=== PATIENT | male | born 1970 | race Caucasian/White ===

== ENCOUNTER 2017-08-18 22:18 | Emergency (ER) | payer OTHER ==
[~2017-08-18] VITALS: Ht 170.2 cm; Wt 97.5 kg
[2017-08-18 22:22] VITALS: BP 130/82
[2017-08-18] MEDS ORDERED: POLYTRIM EYE DR10 ML OPH (23:01)
--- NOTE | 2017-08-18 23:01 | ED EYE COMPLAINT ---
History of Present Illness General Chief Complaint: Eye Problems Stated Complaint: EYE Source: patient, family Exam Limitations: no limitations Vital Signs & Intake/Output Vital Signs & Intake/Output Vital Signs Date Time Temp Pulse Resp B/P B/P Pulse O2 O2 Flow FiO2 Mean Ox Delivery Rate 08/18 2247 Room Air 08/18 2222 98.3 89 18 130/82 96 Room Air ED Intake and Output 08/19 0000 08/18 1200 Intake Total 0 Output Total Balance 0 Intake, Oral 0 Patient 97.522 kg Weight Weight Reported by Patient Measurement Method Allergies Coded Allergies: NO KNOWN ALLERGIES (11/18/13) Reconcile Medications Polytrim (Polytrim Eye Drops) 10,000 UNIT-1 MG/ML DROPS 1 GTT OPH Q6 abrasion Triage Note: PT FROM HOME C/O LEFT EYE INJURY 20 MINS PRIOR TO ARRIVAL. PT STATES 20 MINS PRIOR TO ARRIVAL PT WAS LAYING IN BED WATCHING TV WHEN PTS CAT SPRUNG ON PTS FACE WITH CLAWS OUT. PT STATES THAT THE CLAW SCRATCHED PTS LEFT EYE. PT IN TRIAGE WITH LEFT EYE CLOSED. PT DENIES BLURRY VISION, PT UTD WITH TETANUS AND PTS CAT UTD WITH SHOTS. PT ABLE TO OPEN EYE AND LOOK AROUND WITHOUT DIFFICULTY, PT STATES "IT JUST FEELS LIKE A GOLF BALL, NO PAIN" VSS. Triage Nurses Notes Reviewed? yes HPI: 46M no significant PMH got scratched in his left eye by his cat about an hour ago. Denies pain in the eye at rest or with eye movement. Vision is normal and intact. He reports that his eye feels "wrong", but not painful. He feels well otherwise. Past History Travel History Traveled to [place] past 21 day No Medical History Any Pertinent Medical History? see below for history Neurological: NONE EENT: NONE Cardiovascular: NONE Respiratory: NONE Gastrointestinal: NONE Hepatic: NONE Renal: NONE Musculoskeletal: NONE Psychiatric: NONE Endocrine: NONE Surgical History Surgical History: non-contributory Psychosocial History What is your primary language Korean Tobacco Use: Quit >30 days ago Family History Hx Contributory? No Review of Systems Review of Systems Constitutional: Reports: no symptoms. Eyes: Reports: no symptoms. Ear: Reports: no symptoms. Nose: Reports: no symptoms. Mouth: Reports: no symptoms. Throat: Reports: no symptoms. Respiratory: Reports: no symptoms. Cardiovascular: Reports: no symptoms. GI: Reports: no symptoms. Genitourinary: Reports: no symptoms. Musculoskeletal: Reports: no symptoms. Skin: Reports: no symptoms. Neurological/Psychological: Reports: no symptoms. Hematologic/Endocrine: Reports: no symptoms. Immunologic/Allergic: Reports: no symptoms. All Other Systems: Reviewed and Negative Physical Exam General Appearance: well developed/nourished, no apparent distress General Inspection: penetrating ocular trauma Eyelid: normal inspection Conjunctiva/Sclera: injected Cornea: normal inspection EOM: intact Pupil: normal accommodation, normal pupil, PERRL General Inspection: normal inspection Physical Exam Head: atraumatic, normal appearance Nose: normal inspection Mouth/Throat: normal mouth inspection Neck: normal inspection Cardiovascular/Respiratory: no respiratory distress Neurologic/Psych: awake, alert, oriented x 3, normal mood/affect Progress Differential Diagnosis: corneal abrasion, corneal foreign body, conjunctivitis, detached retina, glaucoma, globe rupture, retinal art./v. occlusion Plan of Care: Patient seen by Dr. Ibarra along with myself, movement and vision intact, no evidence of globe penetration or rupture. Will discharge patient with Polytrim and outpatient optho follow up tomorrow. Departure Departure Disposition: HOME OR SELF CARE Condition: Stable Clinical Impression Primary Impression: Corneal abrasion Referrals: Lauren JENKINS,Aman Suárez MD,Obed Rodríguez Unknown (PCP/Family) Additional Instructions: If you have changes in vision or new eye pain, or any other new symptoms, return to emergency room immediately. See an ophthalmoligst tomorrow. Departure Forms: Customer Survey General Discharge Information Prescriptions: Current Visit Scripts Polytrim (Polytrim Eye Drops) 1 GTT OPH Q6 #10 ML
== END 2017-08-18 23:13 ==
LOC: ERH 22:18
DX: S05.02XA Injury of conjunctiva and corneal abrasion without foreign body, left eye, initial encounter (principal); W55.03XA Scratched by cat, initial encounter; Y93.9 Activity, unspecified; Y92.9 Unspecified place or not applicable